=== PATIENT | female | born 1995 | race Two or more races ===

== ENCOUNTER 2022-04-24 21:33 | Emergency (ER) | payer MEDICAID ==
[~2022-04-24] VITALS: Ht 167.6 cm; Wt 59.0 kg
--- NOTE | 2022-04-24 21:50 | NUR ---
PATIENT [id number] AND [employer] FROM THE STREETS FOR BIZARRE BEHAVIOR "RUNNING AROUND NAKED". PATIENT IS A/O X 1, RR EVEN AND UNLABORED NO SOB NOTED. PATIENT IS AFEBRILE. TAKEN TO ER BED 15, SITTER AT BEDSIDE.
--- NOTE | 2022-04-24 21:55 | NUR ---
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
[2022-04-24 22:12] LABS: HEMATOCRIT 38 % (33-45); HEMOGLOBIN 12.4 g/dL (11.5-14.8); LYMPHOCYTES # (AUTO) 4.2 K/uL (0.8-4.8); LYMPHOCYTES % (AUTO) 51.2 % (20.0-44.0); MEAN CORPUSCULAR HGB CONC 33 g/dl (31.0-36.0); MEAN CORPUSCULAR VOLUME 84 fL (82-100); MONOCYTES # (AUTO) 2.7 K/uL (0.1-1.30); MONOCYTES % (AUTO) 32.5 % (2.0-12.0); NEUTROPHILS # (AUTO) 1.3 K/uL (1.8-8.9); NEUTROPHILS % (AUTO) 16.3 % (43.0-81.0); PLATELET COUNT (AUTO) 338 K/uL (150-450); RED BLOOD CELL COUNT(AUTO) 4.54 MIL/uL (4.0-5.2); WHITE BLOOD COUNT (AUTO) 8.3 K/uL (4.3-11.0)
[2022-04-24 22:27] LABS: ALANINE AMINOTRANSFERASE < 6 U/L (12-78); ALBUMIN 3.8 g/dL (3.4-5.0); ALCOHOL, BLOOD 247 mg/dL (0-0); ALKALINE PHOSPHATASE 63 U/L (46-116); ASPARTATE AMINOTRANSFERASE 24 U/L (15-37); BILIRUBIN,DIRECT 0.2 mg/dL (0.0-0.2); BILIRUBIN,TOTAL 0.5 mg/dL (0.2-1.0); CALCIUM, SERUM 8.3 mg/dL (8.5-10.1); CARBON DIOXIDE 21 mmol/L (21-32); CHLORIDE 107 mmol/L (98-107); CREATININE 0.9 mg/dL (0.6-1.3); GLUCOSE 95 mg/dL (74-106); POTASSIUM 3.8 mmol/L (3.5-5.1); SODIUM SERUM 141 mmol/L (136-145); TOTAL PROTEIN, SERUM 7.3 g/dL (6.4-8.2); UREA NITROGEN, BLOOD 9 mg/dL (7-18)
[2022-04-24 22:28] LABS: ACETAMINOPHEN 0 ug/ml (10-30)
--- NOTE | 2022-04-24 22:30 | NUR ---
COVID SWAB COLLECTED
[2022-04-24 22:59] LABS: BILIRUBIN,URINE NEGATIVE (NEGATIVE); COLOR,URINE YELLOW (YELLOW); LEUKOCYTE ESTERASE ,URINE NEGATIVE (NEGATIVE); NITRITE, URINE NEGATIVE (NEGATIVE); PROTEIN,URINE NEGATIVE (NEGATIVE); UGLUCOSE NEGATIVE (NEGATIVE); UROBILINOGEN,URINE 0.2 EU/dL (0.2)
[2022-04-25] MEDS ORDERED: HALOPERIDOL LACTATE INJ 5 MG/ML VIAL IM ONE (00:30)
[2022-04-25] MEDS ORDERED: HALOPERIDOL LACTATE INJ 5 MG/ML VIAL ONE (00:32)
--- NOTE | 2022-04-25 08:44 | NUR ---
CALLED [facility] VALERIO FOR EVALUATION, LEFT VOICEMAIL
--- NOTE | 2022-04-25 10:36 | NUR ---
[facility] RETURNED CALL FOR EVALUATION: ETA 35 MINUTES.
--- NOTE | 2022-04-25 12:34 | NUR ---
Brittnee at bedside for eval and broked the hold. Patient is calm and cooperative.
--- NOTE | 2022-04-25 12:53 | NUR ---
awaiting for sister Renetta to pick her up. ETA 45 mins.
--- NOTE | 2022-04-25 13:35 | NUR ---
sister Renetta at bedside to pick her up.
[2022-04-25 13:36] VITALS: BP 110/61
--- NOTE | 2022-04-25 13:37 | NUR ---
Patient discharged to home in stable condition. Written and verbal after care instructions given. Patient verbalizes understanding of instruction.
== END 2022-04-25 13:37 | disposition home or self-care (01) ==
LOC: ER 21:35
DX: F10.129 Alcohol abuse with intoxication, unspecified (principal); F19.10 Other psychoactive substance abuse, uncomplicated; Y90.8 Blood alcohol level of 240 mg/100 ml or more; Z20.822 Contact with and (suspected) exposure to COVID-19
CPT/HCPCS: 99285; 85025; 80048; 80076; 81003; 36415; 87426; 80143; 80320; 80307; 96372; C9803; J1630; G0480